=== PATIENT | female | born 1995 | race Caucasian/White ===

== ENCOUNTER 2016-12-25 10:17 | Day surgery (SDC) | payer OTHER ==
[~2016-12-25] VITALS: Ht 160 cm; Wt 65.8 kg
[2016-12-25] VITALS (12 sets, daily range): BP systolic 109–125; BP diastolic 57–75; PULSE 54–76; RESP 16–34; Ht 160 cm; Wt 65.8 kg
[~2016-12-25 10:17] MED LIST: CEFAZOLIN 2 GM/50 ML (PMX) 50 ML IVPB ONE; DIPHENHYDRAMINE 50 MG INJ IV PRN; FENTAnyl 50 MCG/ML VIAL IV PRN; GLYCOPYRROLATE 0.4 MG INJ ONE; HYDROmorphONE (0.2 MG/ML) 10ML SYG IV PRN; MEPERIDINE 25 MG INJ IV PRN; NEOSTIGMINE 3 MG/3 ML SYRINGE ONE; ONDANSETRON 4 MG INJ IV PRN; OXYCODONE/ACETAMINOPHEN (5/325) TAB PO PRN; PROCHLORPERAZINE 10 MG INJ IV PRN; SOD CHLORIDE 0.9% 1,000 ML IV SCH
[2016-12-25] MEDS ORDERED: ONDA-43 PO (11:12)
[2016-12-25] MEDS ORDERED: RANI150T9 PO (11:13)
[2016-12-25] MEDS ORDERED: HYDR-906 PO (11:14)
[2016-12-25] MEDS ORDERED: BUPIVACAINE 0.25% (MPF) 30 ML INJ ONE (11:43)
[2016-12-25] MEDS ORDERED: BUPIVACAINE 0.25% (MPF) 30 ML INJ INJ ONE (12:22)
[2016-12-25] MEDS ORDERED: SUCCINYLCHOLINE CHLORIDE 100 MG/5 ML SYG IV ONE (12:45)
[2016-12-25] MEDS ORDERED: LIDOCAINE 2% (SDV) 5 ML INJ ONE (12:45)
[2016-12-25] MEDS ORDERED: PROPOFOL 20 ML ONE (12:45)
[2016-12-25] MEDS ORDERED: FENTAnyl 50 MCG/ML VIAL ONE ×2 (12:46→13:14)
[2016-12-25] MEDS ORDERED: CEFAZOLIN 1 GM INJ ONE (12:46)
[2016-12-25] MEDS ORDERED: MIDAZOLAM 1 MG/ML 2 ML INJ ONE (12:46)
[2016-12-25] MEDS ORDERED: ROCURONIUM 50 MG INJ ONE (12:46)
--- NOTE | 2016-12-25 12:57 | OPR ---
Date/Time of Note Date/Time of Note DATE: 12/25/16 TIME: 12:57 Operative Report Preoperative Diagnosis symptomatic gallstones Postoperative Diagnosis same Operation/Procedure Performed lap rose therapeutic injection of marcaine Surgeon: Tyrone SIMMONS Specimens gallbladder Tyrone SIMMONS Dec 25, 2016 12:57
[2016-12-25] MEDS ORDERED: HYDROCODONE/APAP (5/325) TAB PO ONE (13:00)
[2016-12-25] MEDS ORDERED: METOCLOPRAMIDE 10 MG INJ ONE (13:13)
[2016-12-25] MEDS ORDERED: ONDANSETRON 4 MG INJ ONE ×2 (13:13→13:23)
[2016-12-25] MEDS ORDERED: FAMOTIDINE 20 MG INJ ONE (13:13)
[2016-12-25] MEDS ORDERED: DEXAMETHASONE 4 MG/ML 1 ML INJ ONE (13:14)
[2016-12-25] MEDS ORDERED: KETOROLAC 30 MG INJ ONE (13:15)
[2016-12-25] MEDS ORDERED: MEPERIDINE 25 MG INJ ONE (13:23)
[2016-12-25] MEDS ORDERED: HYDROmorphONE (0.2 MG/ML) 10ML SYG IV ONE (13:23)
--- NOTE | 2016-12-25 13:39 | OPR ---
DATE OF OPERATION: 12/25/2016 INDICATION: This is a 21-year-old female with symptomatic gallstones. She requests surgical excisi on of her gallbladder. Risks, alternatives, benefits, and personnel were discussed with the patient . Patient expressed understanding and consents to the operation. PREOPERATIVE DIAGNOSIS: Gallstones. POSTOPERATIVE DIAGNOSIS: Gallstones. OPERATION PERFORMED: 1. Laparoscopic cholecystectomy. 2. Therapeutic subcutaneous injection of local anesthesia, CPT code 38304. SURGEON: Genesis Magdaleno MD SPECIMEN: Gallstones. COMPLICATIONS: None. ANESTHESIA: General. PROCEDURE: The patient was taken to the OR and prepped and draped in the usual sterile fashion. Bates rgical timeout was performed. IV antibiotics were given. Infraumbilical incision was made transver sely with a 15 blade. Dissection cautery was carried down to the fascia. Fascia was divided with c urved Felipe scissors. An 0 Vicryl U-stitch was placed into the fascia. Balloon Yanira trocar is int roduced. Pneumoperitoneum established. Midepigastric 12 mm optical trocar and right upper quadrant and right upper flank 5 mm optical trocars are placed under direct visualization. Upon initial ins pection, there were adhesions of the gallbladder. The cystic duct was identified. The critical vie w was established. The cystic duct was divided using a 35 mm [place] vascular stapler. The cystic artery was divided using a 35 mm [place] vascular stapler. Clips were placed for additional reinfor cement. Gallbladder was taken off the gallbladder bed. There was good hemostasis. Gallbladder was retrieved using EndoCatch bag. Ports were removed under direct visualization. The 0 Vicryl U-stit ch was tied down. Skin was closed using skin aretha. Local anesthesia was injected into all incis ion sites. Dictated By: GENESIS VO/BEN Conf#: [id number] DID#: [id number]
== END 2016-12-25 17:10 | disposition home or self-care (01) ==
LOC: SDS 10:17
PROVIDERS: ATTEND Surgery
DX: K80.20 Calculus of gallbladder without cholecystitis without obstruction (principal)
CPT/HCPCS: 47562; 88304; J0690; J1100; J1170; J1200; J1885; J2175; J2250; J2405; J2710; J2765; J3010; J7999; Z7512; Z7610